=== PATIENT | female | born 1960 | race Caucasian/White ===

== ENCOUNTER 2019-05-03 10:55 | Emergency (ER) | payer MEDICAID ==
[~2019-05-03] VITALS: Ht 157.5 cm; Wt 57.7 kg
[2019-05-03 11:01] VITALS: TEMP 97.8
[2019-05-03] MEDS ORDERED: ALERTNESS AID200 MG PO (11:09)
[2019-05-03] MEDS ORDERED: ZITHROMAX Z PA250 MG PO (11:23)
[2019-05-03] MEDS ORDERED: VENTOLIN0.09 MG IH (11:23)
[2019-05-03] MEDS ORDERED: PREDNISONE20 MG PO (11:23)
[2019-05-03 12:38] VITALS: BP 117/75; PULSE 64
== END 2019-05-03 12:45 | disposition home or self-care (01) ==
LOC: COL.ER 10:55
DX: R05 Cough (principal); R06.2 Wheezing; F17.210 Nicotine dependence, cigarettes, uncomplicated